=== PATIENT | female | born 1975 | race Caucasian/White ===

== ENCOUNTER 2019-03-12 08:02 | Day surgery (SDC) | payer OTHER ==
[~2019-03-12 08:02] MED LIST: CEFAZOLIN 2 GM/50 ML (PMX) 50 ML IVPB
[2019-03-12] MEDS: SOD CHLORIDE 0.9% 1,000 ML IV (10:59)
[2019-03-12] MEDS ORDERED: HYDROmorphONE 1 MG/5 ML IV SYRINGE IV ×3 (11:30)
[2019-03-12] MEDS ORDERED: DIPHENHYDRAMINE 50 MG INJ IV (11:30)
[2019-03-12] MEDS ORDERED: FENTAnyl 50 MCG/ML VIAL IV ×3 (11:30)
[2019-03-12] MEDS ORDERED: MEPERIDINE 25 MG INJ IV (11:30)
[2019-03-12] MEDS ORDERED: OXYCODONE/ACETAMINOPHEN (5/325) TAB PO ×2 (11:30)
[2019-03-12] MEDS ORDERED: ONDANSETRON 4 MG INJ IV (11:30)
[2019-03-12] MEDS ORDERED: PROPOFOL 200 MG INJ (11:58)
[2019-03-12] MEDS ORDERED: MIDAZOLAM 1 MG/ML 2 ML INJ (11:58)
[2019-03-12] MEDS ORDERED: METOCLOPRAMIDE 10 MG INJ (11:58)
[2019-03-12] MEDS ORDERED: CEFAZOLIN 1 GM INJ (12:01)
[2019-03-12] MEDS ORDERED: FENTAnyl 50 MCG/ML VIAL (12:01)
[2019-03-12] MEDS ORDERED: ONDANSETRON 4 MG INJ (12:05)
[2019-03-12] MEDS ORDERED: HYDROmorphONE 2 MG/ML SYG (12:18)
[2019-03-12] MEDS ORDERED: EPHEDrine 25 MG/5 ML SYG (12:18)
[2019-03-12] MEDS: ISOSULFAN BLUE 1% 5 ML INJ SC (12:33)
[2019-03-12] MEDS: BUPIVACAINE 0.5% 30 ML VIAL INJ (13:17)
[2019-03-12] MEDS: HYDROCODONE/APAP (5/325) TAB PO (14:31)
[2019-03-12] MEDS ORDERED: BUPIVACAINE 0.25% (MPF) 30 ML INJ (15:01)
== END 2019-03-12 16:15 | disposition home or self-care (01) ==
LOC: SDS 08:02
DX: D05.91 Unspecified type of carcinoma in situ of right breast (principal)
CPT/HCPCS: 14000; 84703; 88309; 88331; 88341; 88342